=== PATIENT | male | born 1955 | race Caucasian/White ===

== ENCOUNTER 2017-05-22 20:45 | Emergency (ER) | payer MEDICAID ==
[~2017-05-22] VITALS: Ht 167.6 cm; Wt 66.8 kg
[2017-05-22 20:48] VITALS: BP 147/81
[2017-05-22] MEDS ORDERED: ATENOLOL (20:52)
[2017-05-22] MEDS ORDERED: ATEN25TA PO (20:56)
== END 2017-05-22 21:55 | disposition home or self-care (01) ==
LOC: ED 21:35
DX: K13.79 Other lesions of oral mucosa (principal); K12.1 Other forms of stomatitis; F17.200 Nicotine dependence, unspecified, uncomplicated; Z88.0 Allergy status to penicillin
CPT/HCPCS: 99283